=== PATIENT | female | born 2005 | race Hispanic/Latino ===

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

== ENCOUNTER 2023-12-31 15:19 | Emergency (ER) | payer BC, MEDICAID ==
[~2023-12-31] VITALS: Ht 152.4 cm; Wt 61.2 kg
[~2023-12-31 15:19] MED LIST: IBUP-2070 PO
[2023-12-31 16:03] LABS: BASOPHILS # (AUTO) 0.07 K/uL (0.00-0.20); BASOPHILS % (AUTO) 0.7 % (0.0-5.0); EOSINOPHILS # (AUTO) 0.11 K/uL (0.00-0.70); EOSINOPHILS % (AUTO) 1.2 % (0.0-8.0); HEMATOCRIT 42.6 % (36-48); IMMATURE GRANULOCYTE ABSOLUTE 0.04 K/uL (0-1); LYMPHOCYTES # (AUTO) 2.1 K/uL (1.0-4.8); LYMPHOCYTES % (AUTO) 22.4 % (21.0-51.0); MEAN CORPUSCULAR HEMOGLOBIN 32.3 pg (27.0-33.0); MEAN CORPUSCULAR VOLUME 92.2 fL (80-100); MONOCYTES # (AUTO) 0.7 K/uL (0.1-1.0); MONOCYTES % (AUTO) 7.7 % (3.0-13.0); NEUTROPHILS # (AUTO) 6.3 K/uL (1.8-7.7); NEUTROPHILS % (AUTO) 67.6 % (40.0-77.0); PLATELET COUNT (AUTO) 286 K/uL (130-400); RED BLOOD CELL COUNT(AUTO) 4.62 MIL/uL (4.00-5.50); WHITE BLOOD COUNT (AUTO) 9.3 K/uL (4.8-10.8)
[2023-12-31 16:17] LABS: CREATININE 0.7 mg/dL (0.5-1.0); POTASSIUM 3.9 mmol/L (3.5-5.1)
[2023-12-31] MEDS: 0.9%NACL 1000ML 1,000 ML IV ONE (16:17)
[2023-12-31] MEDS: ketOROlac 30MG VIAL (30MG/ML) IVP ONE (16:18)
[2023-12-31 16:45] LABS: APPEARANCE,URINE CLOUDY (CLEAR); BILIRUBIN,URINE NEGATIVE (NEGATIVE); COLOR,URINE LIGHT-ORANGE (YELLOW); GLUCOSE, URINE (UA) NEGATIVE (NEGATIVE); KETONES,URINE NEGATIVE (NEGATIVE); LEUKOCYTE ESTERASE ,URINE 500 Leu/uL (NEGATIVE); NITRATE,URINE NEGATIVE (NEGATIVE); OCCULT BLOOD,URINE LARGE (NEGATIVE); PROTEIN,URINE 30 mg/dL (NEGATIVE); UROBILINOGEN,URINE 0.2 mg/dL (0.2-1.0)
[2023-12-31 16:46] LABS: HCG,QUALITATIVE URINE NEGATIVE (NEGATIVE)
[2023-12-31 16:47] LABS: ADD UA MICROSCOPIC YES
[2023-12-31 17:08] LABS: BACTERIA,URINE FEW /HPF (None Seen); MUCUS,URINE RARE LPF (None Seen); RBC,URINE 26-50 /HPF (0-1); SQUAMOUS EPITHELIAL CELL,UR FEW /HPF (0-2); WBC CLUMP FEW /HPF (0-1); WBC,URINE 51-100 /HPF (0-1)
[2023-12-31] MEDS ORDERED: IBUP-2077 PO (17:11)
[2023-12-31] MEDS ORDERED: PHEN-776 PO (17:11)
[2023-12-31] MEDS ORDERED: LEVO-70 PO (17:11)
[2023-12-31] MEDS: levoFLOXacin 500 MG TABLET PO ONE (17:50)
[2023-12-31] MEDS: PHENAZOpyridine HCL 200 MG TAB 200 MG TABLET PO ONE (17:50)
[2023-12-31 17:55] VITALS: BP 116/74; PULSE 88; RESP 18; TEMP 98.5; O2SAT 99
== END 2023-12-31 18:22 | disposition home or self-care (01) ==
LOC: EDH 15:19
DX: N30.01 Acute cystitis with hematuria (principal); Z87.440 Personal history of urinary (tract) infections; Z88.0 Allergy status to penicillin; Z79.899 Other long term (current) drug therapy
CPT/HCPCS: 99284; 74176; 96374; 96361; 80048; 85025; 87086; 81001; 81025; 36415; J7030; J1885; 87186